=== PATIENT | female | born 1965 | race Caucasian/White ===

== ENCOUNTER 2018-01-18 04:01 | Observation (INO) | payer OTHER ==
[~2018-01-18] VITALS: Ht 167.6 cm; Wt 72.2 kg
[~2018-01-18 04:01] MED LIST: ALLERGY CONGES1 EACH PO; ASPIR 8181 M1 PO; CARAFATE100 MG/ML PO; DIFLUCAN100 MG PO; ENDOCET 5-3251 EACH PO; ERGOCALCIF50000 UNIT PO; FLONASE ALLERG9.9 ML BOTH NARES; KLONOPIN0.5 M1 PO; LIDOCAINE 2% TP; LIDOCAINE20 MG/1 M5 MM; LISINOPRIL10 MG PO; METOPROLOL SUCC50 MG PO; MYCOSTATIN 100,60 ML PO; OMEPRAZOLE20 M2 PO; OXYCODONE-ACET1 EACH PO; PERCOCET 5/31 TABLET PO; PRINIVIL20 MG PO; PROAIR HFA8.5 GM IH; PROTONIX40 MG PO; PROVENTIL,2.5 MG/3 M IH; SUCRALFATE1 GM PO; TEMOVATE 0.05%30 GM TP; VICODIN 5-3001 EACH PO; ZANTAC150 MG PO; ZOFRAN4 MG PO; ZUBSOLV 5.7-1.1 EACH SL
[2018-01-18 05:08] LABS: HEMATOCRIT 41.9 % (36.0-46.0); HEMOGLOBIN 14.1 G/DL (11.9-15.5); MCH 29.8 PG (29.0-34.0); MCHC 33.7 G/DL (30.0-36.0); MCV 88.6 FL (83-99); PLATELET COUNT 216 K/uL (156-360); RED BLOOD COUNT 4.73 M/uL (3.80-5.20)
[2018-01-18 05:24] LABS: ALBUMIN 3.8 g/dL (3.2-4.8); CHLORIDE 104 mEq/L (99-109); POTASSIUM 3.6 mEq/L (3.7-5.4); SODIUM 139 mEq/L (136-147)
[2018-01-18 05:27] LABS: GLUCOSE 129 mg/dL (70-99); TOTAL PROTEIN 7.4 g/dL (6.4-8.3)
[2018-01-18 05:29] LABS: TOTAL BILIRUBIN 0.7 mg/dL (0.0-1.0)
[2018-01-18 05:30] LABS: ALKALINE PHOSPHATASE 101 IU/L (3-129); CREATININE 0.7 mg/dL (0.6-1.3); GFR ESTIMATE (CALCULATED) > 59 mL/min/
[2018-01-18 05:31] LABS: UREA NITROGEN (BUN) 8 mg/dL (9-23)
[2018-01-18 05:32] LABS: AST (GOT) 14 IU/L (2-34)
[2018-01-18 05:33] LABS: ALT (GPT) 7 IU/L (3-49)
[2018-01-18 06:30] LABS: APPEARANCE CLEAR ((CLEAR)); BILIRUBIN NEGATIVE; BLOOD NEGATIVE; COLOR YELLOW ((YELLOW)); GLUCOSE (STRIP) NEGATIVE; KETONES NEGATIVE; LEUKOCYTES NEGATIVE; NITRITE NEGATIVE; PROTEIN (STRIP) NEGATIVE; SPECIFIC GRAVITY 1.044 (1.000-1.030); UCUL ADDED? NO; UROBILINOGEN 0.2 MG/DL (0.2-1.0)
[2018-01-18 06:37] LABS: LIPASE 9 U/L (1.0-51.0)
[2018-01-18] MEDS ORDERED: VENTOLIN HFA18 GM IH (07:52)
[2018-01-18] MEDS ORDERED: MILK OF MAGN PO (07:54)
[2018-01-18 09:03] LABS: THYROTROPIN (TSH) 0.56 MIU/L (0.4-5.5)
[2018-01-18 09:13] LABS: C-REACTIVE PROTEIN 53.6 MG/L (0-10)
[2018-01-18 13:35] VITALS: BP 140/73
[2018-01-18 15:24] VITALS: BP 138/74
[2018-01-18 20:09] VITALS: BP 104/57
[2018-01-18 23:57] VITALS: BP 127/74
[2018-01-19 03:59] VITALS: BP 115/68
[2018-01-19 06:08] LABS: CHLORIDE 108 MEQ/L (99-109); CREATININE 0.5 MG/DL (0.6-1.3); GFR ESTIMATE (CALCULATED) > 59 mL/min/; POTASSIUM 3.6 MEQ/L (3.7-5.4); SODIUM 144 MEQ/L (136-147); UREA NITROGEN (BUN) 5 mg/dL (9-23)
[2018-01-19 06:20] LABS: BASOPHIL (%) 0.1 % (0-1); EOSINOPHIL (%) 0.3 % (0-5); HEMATOCRIT 36.4 % (36.0-46.0); IMMATURE GRANULOCYTE (%) 0.5 % (0.0-0.7); LYMPHOCYTE (%) 19.8 % (15-42); LYMPHOCYTE COUNT 1.9 K/uL (1.0-2.8); MCH 30.5 PG (29.0-34.0); MCV 92.4 FL (83-99); MONOCYTE (%) 9.5 % (3-12); MONOCYTE COUNT 0.9 K/uL (0-0.8); NEUTROPHIL (%) 69.8 % (45-76); NEUTROPHIL COUNT 6.8 K/uL (1.8-6.4); PLATELET COUNT 176 K/uL (156-360); RBC DIS.WIDTH-CV 14.3 % (11.8-14.6); RBC DIS.WIDTH-SD 48.5 % (39-53); RED BLOOD COUNT 3.94 M/uL (3.80-5.20); WHITE BLOOD COUNT 9.8 K/uL (4.1-10.2)
[2018-01-19 06:23] LABS: GLUCOSE 92 mg/dL (70-99)
[2018-01-19 07:21] VITALS: BP 142/93
[2018-01-19 11:04] VITALS: BP 111/67
[2018-01-19] MEDS ORDERED: NICODERM CQ1 EAC2 TD (14:13)
[2018-01-19] MEDS ORDERED: FLORASTOR250 MG PO (14:13)
[2018-01-19] MEDS ORDERED: CIPRO500 MG PO (14:13)
[2018-01-19] MEDS ORDERED: FLAGYL500 MG PO (14:13)
[2018-01-19] MEDS ORDERED: COLACE100 MG PO (14:13)
[2018-01-19] MEDS ORDERED: ULTRAM50 MG PO (14:13)
== END 2018-01-19 16:09 | disposition home or self-care (01) ==
LOC: EME → EDBD 04:01 → 4SOUTH 07:52 → EDOF 07:52 → ENRESERV 07:54 → 4SOUTH 13:28
PROVIDERS: Emergency Medicine; Student in an Organized Health Care Education/Training Program
DX: K57.32 Diverticulitis of large intestine without perforation or abscess without bleeding (principal); K58.9 Irritable bowel syndrome, unspecified; I10 Essential (primary) hypertension; J44.9 Chronic obstructive pulmonary disease, unspecified; Z90.49 Acquired absence of other specified parts of digestive tract; F17.210 Nicotine dependence, cigarettes, uncomplicated; Z82.49 Family history of ischemic heart disease and other diseases of the circulatory system; Z83.3 Family history of diabetes mellitus; Z80.9 Family history of malignant neoplasm, unspecified; Z88.0 Allergy status to penicillin; Z88.1 Allergy status to other antibiotic agents; Z79.82 Long term (current) use of aspirin
CPT/HCPCS: 74177; 80048; 80053; 81003; 83605; 83690; 84443; 85025; 85027; 86140; 87040; 94799; 99281; 99285; G0378; J0500; J1170; J1956; J2270; J2405; J7030; J7120; S0028; S0030